=== PATIENT | male | born 1945 | race Caucasian/White ===

== ENCOUNTER 2021-07-01 07:12 | Day surgery (SDC) | payer OTHER ==
[2021-06-24 11:44] LABS: BASOPHILS % (AUTO) 0.6 % (0-1); EOSINOPHILS # (AUTO) 0.2 X10'3 (0-0.9); LYMPHOCYTES # (AUTO) 1.4 X10'3 (1.1-4.8); LYMPHOCYTES % (AUTO) 17.5 % (21-51); MEAN CORPUSCULAR HEMOGLOBIN 32.3 PG (27.0-31.0); MEAN CORPUSCULAR HGB CONC 34.1 g/dL (33.0-36.5); MEAN CORPUSCULAR VOLUME 94.7 FL (78-98); MONOCYTES # (AUTO) 0.7 X10'3 (0-0.9); MONOCYTES % (AUTO) 8.7 % (2-12); NEUTROPHILS # (AUTO) 5.7 X10'3 (1.8-7.7); NEUTROPHILS % (AUTO) 71.2 % (42-75); PRE OP HEMATOCRIT 44.8 % (42.0-52.0); PRE OP HEMOGLOBIN 15.3 g/dL (14.0-17.9); PRE OP PLATELET COUNT 211 X10'3 (140-440); RED BLOOD COUNT 4.73 X10'6 (4.70-6.10); RED CELL DISTRIBUTION WIDTH 12.8 % (11.5-14.5)
[2021-06-24 12:01] LABS: ALBUMIN 3.9 G/DL (3.4-5.0); ALBUMIN/GLOBULIN RATIO 1.3 (1.1-1.5); ALKALINE PHOSPHATASE 96 IU/L (46-116); BLOOD UREA NITROGEN 19 MG/DL (7-18); BUN/CREATININE RATIO 15.6 (5.4-32.0); CALCIUM 9.7 MG/DL (8.5-10.1); CHLORIDE 104 MMOL/L (99-107); CREATININE 1.22 MG/DL (0.60-1.10); PRE OP ALT 33 U/L (30-65); PRE OP ANION GAP 6 (8-16); PRE OP AST 24 U/L (10-37); PRE OP BILIRUB, TOTAL 0.7 MG/DL (0.0-1.0); PRE OP GLUCOSE 147 MG/DL (70-104); PRE OP POTASSIUM 4.8 MMOL/L (3.4-5.1); PRE OP SODIUM 139 MMOL/L (135-145); TOTAL CARBON DIOXIDE 29.3 MMOL/L (24-32); eGFR 58 ML/MIN
[2021-07-01] VITALS (12 sets, daily range): BP systolic 110–138; BP diastolic 48–71
[~2021-07-01] VITALS: Ht 175.3 cm; Wt 80.1 kg
[~2021-07-01 07:12] MED LIST: BUPIVAcaine/PF 2.5mg/ml (0.25%) 10ml vial ONE; GLUC-95 PO; LIDOcaine 1% 30ml preserv. free vial ONE; LUTE40CA PO; MULT-1085 PO; NIA500ERT PO; ZEAX100P PO; cefazolin/dext.iso 2gm/50ml IV ONE; famotidine 20mg tablet PO ONE; ringers solution, lacted 1,000 ML IV SCH
[2021-07-01] MEDS ORDERED: ringers solution, lacted 1,000 ML IV SCH (07:55)
[2021-07-01] MEDS ORDERED: HYDROmorphone/PF 0.2 MG/ML SYRINGE IV PRN (07:55)
[2021-07-01] MEDS ORDERED: morphine 2 MG/ML inj. syringe IV PRN (07:55)
[2021-07-01] MEDS ORDERED: ondansetron/PF 4mg/2ml inj IV PRN (07:55)
[2021-07-01] MEDS ORDERED: dexamethasone sod phosphate 4mg/ml inj. ONE (08:25)
[2021-07-01] MEDS ORDERED: neostigmine methylsulfate 1 MG/ML 10ml vial ONE (08:25)
[2021-07-01] MEDS ORDERED: fentaNYL/PF 50MCG/1 ML 2ML syringe ONE ×2 (08:25→10:17)
[2021-07-01] MEDS ORDERED: ondansetron/PF 4mg/2ml inj ONE (08:25)
[2021-07-01] MEDS ORDERED: glycopyrrolate 0.2mg/ml inj ONE (08:25)
[2021-07-01] MEDS ORDERED: rocuronium 10mg/ml inj IV ONE (08:25)
[2021-07-01] MEDS ORDERED: LIDOcaine 2% (20mg/ml) 5ml vial ONE (08:25)
[2021-07-01] MEDS ORDERED: propofol inj 20 ML IV ONE (08:25)
[2021-07-01] MEDS ORDERED: sevoflurane 250ml liquid IH ONE (09:16)
[2021-07-01] MEDS ORDERED: ePHEDrine 50MG/ML INJ. ONE (10:09)
[2021-07-01] MEDS ORDERED: esmolol inj. 10 ML IV ONE (10:09)
[2021-07-01] MEDS ORDERED: metoprolol tartrate 1mg/ml inj IV ONE (10:27)
--- NOTE | 2021-07-01 10:53 | NUR ---
Received from OR via , accompanied by Anesthesiologist DR HAIR and report given by Anesthesiolgist. AWAKENS TO VOICE. VITALS STABLE. DRESSINGS DI. JOHN PAIN. ABD SOFT.
[2021-07-01] MEDS ORDERED: HYDROcodone/acetaminophen 5mg/325mg tablet PO PRN (11:15)
[2021-07-01] MEDS ORDERED: acetaminophen 1,000mg/100ml IV 100 ML IV ONE (11:25)
[2021-07-01] MEDS ORDERED: ketorolac trometh. 30mg/ml inj. IM ONE (11:25)
[2021-07-01] MEDS ORDERED: LIDOcaine 2% 10ml TOPICAL JELLY (Urojet) MM ONE (14:15)
--- NOTE | 2021-07-01 15:00 | NUR ---
PT WAS UNABLE TO VOID ON HIS OWN. AN INDWELLING 16FR STRANGE CATHETER. NO RESISTANCE WAS MET. 10CC WATER WAS INJECTED IN THE BALLOON. INTRUCTIONS WERE GIVEN TO THE PT ON HOW TO EMPTY AND REMOVE THE STRANGE.
--- NOTE | 2021-07-01 16:13 | NUR ---
AWAKE AND ORIENTED. VITALS STABLE. STATES MINIMAL DISCOMFORT. HOME WITH A FRIEND AT THIS TIME.
== END 2021-07-01 16:13 | disposition home or self-care (01) ==
LOC: PAS 07:12
PROVIDERS: ATTEND Surgery
DX: K40.20 Bilateral inguinal hernia, without obstruction or gangrene, not specified as recurrent (principal); N40.0 Benign prostatic hyperplasia without lower urinary tract symptoms; Z20.822 Contact with and (suspected) exposure to COVID-19; Z87.891 Personal history of nicotine dependence; Z98.890 Other specified postprocedural states; Z72.89 Other problems related to lifestyle; Z79.899 Other long term (current) drug therapy; Z82.49 Family history of ischemic heart disease and other diseases of the circulatory system
CPT/HCPCS: 36415; 49650; 80053; 82948; 85025; 93005; C1781; J0131; J0690; J1100; J1885; J2270; J2405; J2704; J2710; J3010; J3490; J7030; J7120; S2900; U0003; U0005; Z7506; Z7508; Z7512; A4215; A4618

== ENCOUNTER 2021-10-09 10:05 | Emergency (ER) | payer OTHER ==
[~2021-10-09] VITALS: Ht 177.8 cm; Wt 1.0 kg
[~2021-10-09 10:05] MED LIST changes: -BUPIVAcaine/PF 2.5mg/ml (0.25%) 10ml vial ONE; -LIDOcaine 1% 30ml preserv. free vial ONE; -cefazolin/dext.iso 2gm/50ml IV ONE; -famotidine 20mg tablet PO ONE; -ringers solution, lacted 1,000 ML IV SCH
[2021-10-09 10:23] VITALS: BP 138/74
[2021-10-09] MEDS ORDERED: ketorolac trometh inj. 60 MG/2 ML VIAL IM ONE (10:35)
[2021-10-09] MEDS ORDERED: triamcinolone acetonide 40mg/ml inj IM ONE (10:35)
[2021-10-09] MEDS ORDERED: morphine 4 MG/ML inj SYRINge IM ONE (12:45)
[2021-10-09] MEDS ORDERED: morphine 10mg/ml inj. IM ONE (12:50)
[2021-10-09] MEDS ORDERED: cyclobenzaprine 10mg tablet PO ONE (12:55)
[2021-10-09] MEDS ORDERED: CYCL-1 PO (14:28)
[2021-10-09] MEDS ORDERED: TRAM50TA2 PO (15:37)
== END 2021-10-09 16:36 | disposition home or self-care (01) ==
LOC: ER 10:06
DX: M54.32 Sciatica, left side (principal); M54.16 Radiculopathy, lumbar region; M51.36 Other intervertebral disc degeneration, lumbar region; Z79.899 Other long term (current) drug therapy
CPT/HCPCS: 72100; 72148; 96372; 99284; J1885; J2274; J3301

== ENCOUNTER 2022-04-20 11:18 | Outpatient (CLI) | payer OTHER ==
[~2022-04-20 11:18] MED LIST changes: +CYCL-1 PO
== END 2022-04-20 23:59 | disposition home or self-care (01) ==
LOC: LAB 11:18
PROVIDERS: ATTEND Physician Assistant
DX: R35.1 Nocturia (principal); R97.20 Elevated prostate specific antigen [PSA]
CPT/HCPCS: 36415; 84153